=== PATIENT | female | born 1960 | race Caucasian/White ===

== ENCOUNTER 2018-12-06 13:36 | Observation (INO) ==
[2018-12-06 14:43] LABS: Basophils % 0.5 %; Eosinophils # 0.1 K/mcL (0.0-0.6); Eosinophils % 1.6 %; Hematocrit 43.1 % (35.3-44.9); Hemoglobin 14.2 g/dL (11.5-15.4); Immature Granulocytes % 0.2 % (0-4); Lymphocytes # 1.6 K/mcL (0.6-4.6); Mean Corpuscular HGB Conc 32.9 g/dL (31.6-35.5); Mean Corpuscular Hemoglobin 30.7 pg (28.0-33.3); Mean Corpuscular Volume 93.3 fL (83.0-100.0); Mean Platelet Volume 9.8 fL (9.4-12.4); Monocytes # 0.4 K/mcL (0.0-1.3); Neutrophils # 3.4 K/mcL (1.6-8.9); Platelet Count 170 K/mcL (140-400); Red Blood Count 4.62 M/mcL (3.82-4.97); Red Cell Distribution Width 13.5 % (11.5-14.5); Segmented Neutrophils % 60.7 %; White Blood Count 5.5 K/mcL (4.3-11.1)
[2018-12-06 14:57] LABS: BUN/Creatinine Ratio 13 (6-26); Blood Urea Nitrogen 12 mg/dL (8-23); Carbon Dioxide 25 mEq/L (23-29); Chloride 107 mEq/L (98-107); Glucose 77 mg/dL (70-105); Osmolality,Calculated 285 (280-300); Potassium 4.1 mEq/L (3.5-5.1); Sodium 138 mEq/L (136-145); eGFR For African Americans > 60 (> 60); eGFR For Non-African Americans > 60 (> 60)
[2018-12-06 16:40] LABS: Thyroid Stimulating Hormone 1.339 mcIU/mL (0.340-5.600)
[2018-12-06 16:49] LABS: Bilirubin,Urine Negative (Negative); Blood,Urine Negative (Negative); Clarity,Urine Clear (Clear); Color,Urine Yellow (Yellow); Glucose,Urine (UA) Normal (Normal); Ketones,Urine Negative (Negative); Leukocyte Esterase,Urine Negative (Negative); Nitrite,Urine Negative (Negative); PH,Urine 7.5 pH Units (5.0-8.0); Protein,Urine Negative (Neg-Trace); Specific Gravity,Urine 1.013 (1.010-1.025); Urobilinogen,Urine Normal (Normal)
[2018-12-06] MEDS ORDERED: Naloxone 0.4 MG/ML INJ IVP PRN (17:31)
[2018-12-07 01:28] LABS: Basophils % 0.6 %; Eosinophils # 0.1 K/mcL (0.0-0.6); Eosinophils % 2.1 %; Hematocrit 41.6 % (35.3-44.9); Hemoglobin 13.8 g/dL (11.5-15.4); Immature Granulocytes % 0.4 % (0-4); Lymphocytes # 1.8 K/mcL (0.6-4.6); Lymphocytes % 34.7 %; Mean Corpuscular HGB Conc 33.2 g/dL (31.6-35.5); Mean Corpuscular Hemoglobin 30.9 pg (28.0-33.3); Mean Corpuscular Volume 93.1 fL (83.0-100.0); Mean Platelet Volume 9.9 fL (9.4-12.4); Monocytes # 0.5 K/mcL (0.0-1.3); Monocytes % 8.8 %; Neutrophils # 2.8 K/mcL (1.6-8.9); Platelet Count 161 K/mcL (140-400); Red Blood Count 4.47 M/mcL (3.82-4.97); Red Cell Distribution Width 13.5 % (11.5-14.5); Segmented Neutrophils % 53.4 %; White Blood Count 5.2 K/mcL (4.3-11.1)
[2018-12-07 01:33] LABS: INR 2.2; Prothrombin Time 24.6 Seconds (9.4-12.1)
[2018-12-07 01:36] LABS: Activated Partial Thrombo Time 37.9 Seconds (26.0-36.0)
[2018-12-07 01:49] LABS: BUN/Creatinine Ratio 15 (6-26); Blood Urea Nitrogen 13 mg/dL (8-23); Calcium 8.7 mg/dL (8.6-10.3); Carbon Dioxide 25 mEq/L (23-29); Chloride 108 mEq/L (98-107); Chol/HDL Ratio 2.5 (0-4.9); Cholesterol 122 mg/dL (< 200); Glucose 116 mg/dL (70-105); HDL Cholesterol 49 mg/dL (40-59); LDL Cholesterol,Calculated 56 mg/dL (0-99); Osmolality,Calculated 293 (280-300); Potassium 3.5 mEq/L (3.5-5.1); Sodium 141 mEq/L (136-145); Triglycerides 85 mg/dL (< 150); eGFR For African Americans > 60 (> 60); eGFR For Non-African Americans > 60 (> 60)
[2018-12-07 01:51] LABS: Alanine Aminotransferase 12 Units/L (7-52); Albumin 3.7 g/dL (3.5-5.7); Albumin/Globulin Ratio 1.5 (1.1-2.2); Alkaline Phosphatase 54 Units/L (34-104); Aspartate Amino Transferase 20 Units/L (13-39); Bilirubin,Direct 0.1 mg/dL (0.0-0.2); Bilirubin,Indirect 0.3 mg/dL (0.0-1.2); Bilirubin,Total 0.4 mg/dL (0.3-1.0); Globulin 2.5 g/dL (2.4-3.5); Total Protein 6.2 g/dL (6.4-8.9)
[2018-12-07 01:57] LABS: Thyroid Stimulating Hormone 1.097 mcIU/mL (0.340-5.600)
[2018-12-07 02:11] LABS: C-Reactive Protein < 5 mg/L (Less than 10)
[2018-12-07] MEDS ORDERED: Fluticasone Propionate Nasal 50 MCG/SPRAY BOTTLE NS PRN (07:41)
[2018-12-07] MEDS: Aspirin Enteric Coated 81 MG Tablet PO SCH (09:14)
[2018-12-07] MEDS: Gabapentin 400 MG CAPSULE PO SCH ×4 (09:14→20:18)
[2018-12-07] MEDS: BuPROPion XL (24 HR) 150 MG TABLET PO SCH ×2 (09:14→09:15)
[2018-12-07] MEDS: FLUoxetine 20 MG CAPSULE PO SCH (09:14)
[2018-12-07] MEDS: Topiramate 25 MG TABLET PO SCH (09:14)
[2018-12-07] MEDS: *HR* OxyCODONE/APAP 7.5/325 TABLET PO PRN ×2 (09:15→16:34)
[2018-12-07] MEDS: Venlafaxine XR (24 HR) 75 MG CAP.ER.24H PO SCH (09:15)
[2018-12-07] MEDS: Furosemide 40 MG TABLET PO SCH (09:15)
[2018-12-07] MEDS: Spironolactone 25 MG TABLET PO SCH (09:15)
[2018-12-07] MEDS: Loratadine 10 MG TABLET PO SCH (09:15)
[2018-12-07] MEDS: (Mirabegron [Myrbetriq] 50 MG) PO SCH (09:16)
[2018-12-07] MEDS ORDERED: Warfarin perPT PO PRN (18:00)
[2018-12-07] MEDS ORDERED: *HR* Warfarin 5 MG TABLET PO ONE (18:00)
[2018-12-07] MEDS ORDERED: *HR* Warfarin 1 MG TABLET PO SCH (18:00)
[2018-12-07] MEDS: traZODone 50 MG TABLET PO SCH (20:18)
[2018-12-08 04:53] LABS: INR 1.7; Prothrombin Time 19.4 Seconds (9.4-12.1)
[2018-12-08] MEDS: Venlafaxine XR (24 HR) 75 MG CAP.ER.24H PO SCH (08:11)
[2018-12-08] MEDS: Spironolactone 25 MG TABLET PO SCH (08:11)
[2018-12-08] MEDS: FLUoxetine 20 MG CAPSULE PO SCH (08:12)
[2018-12-08] MEDS: Topiramate 25 MG TABLET PO SCH (08:12)
[2018-12-08] MEDS: *HR* OxyCODONE/APAP 7.5/325 TABLET PO PRN ×2 (08:12→16:16)
[2018-12-08] MEDS: BuPROPion XL (24 HR) 150 MG TABLET PO SCH ×2 (08:12)
[2018-12-08] MEDS: Gabapentin 400 MG CAPSULE PO SCH ×4 (08:12→20:08)
[2018-12-08] MEDS: (Mirabegron [Myrbetriq] 50 MG) PO SCH (08:12)
[2018-12-08] MEDS: Furosemide 40 MG TABLET PO SCH (08:12)
[2018-12-08] MEDS: Loratadine 10 MG TABLET PO SCH (08:12)
[2018-12-08] MEDS: Aspirin Enteric Coated 81 MG Tablet PO SCH (08:12)
[2018-12-08] MEDS ORDERED: *HR* Warfarin 7.5 MG TABLET PO ONE (18:00)
[2018-12-09] MEDS: traZODone 50 MG TABLET PO SCH (00:09)
[2018-12-09 05:04] LABS: INR 1.5; Prothrombin Time 17.6 Seconds (9.4-12.1)
[2018-12-09] MEDS: Spironolactone 25 MG TABLET PO SCH (08:09)
[2018-12-09] MEDS: Loratadine 10 MG TABLET PO SCH (08:09)
[2018-12-09] MEDS: Furosemide 40 MG TABLET PO SCH (08:09)
[2018-12-09] MEDS: Venlafaxine XR (24 HR) 75 MG CAP.ER.24H PO SCH (08:09)
[2018-12-09] MEDS: BuPROPion XL (24 HR) 150 MG TABLET PO SCH ×2 (08:09)
[2018-12-09] MEDS: FLUoxetine 20 MG CAPSULE PO SCH (08:09)
[2018-12-09] MEDS: Topiramate 25 MG TABLET PO SCH (08:09)
[2018-12-09] MEDS: Gabapentin 400 MG CAPSULE PO SCH ×2 (08:09→12:25)
[2018-12-09] MEDS: Aspirin Enteric Coated 81 MG Tablet PO SCH (08:09)
[2018-12-09] MEDS: (Mirabegron [Myrbetriq] 50 MG) PO SCH (08:10)
[2018-12-09] MEDS ORDERED: Isovue-370 500 ML BOTTLE IVP ONE (13:26)
[2018-12-09 16:19] VITALS: BP 103/64
[2018-12-09] MEDS ORDERED: *HR* Warfarin 7.5 MG TABLET PO ONE (18:00)
== END 2018-12-09 18:32 | disposition home or self-care (01) ==
LOC: 3BNU 13:36 → EMEROOARM 13:36 → SUATTDRO 16:21 → 3BNU 17:29
PROVIDERS: ADMIT Internal Medicine; ATTEND Student in an Organized Health Care Education/Training Program